=== PATIENT | female | born 1950 | race Caucasian/White ===

== ENCOUNTER 2022-12-17 20:50 | Emergency (ER) | payer MEDICAID ==
[~2022-12-17] VITALS: Ht 157.5 cm; Wt 73.0 kg
[2022-12-17 21:18] VITALS: BP 133/68
[2022-12-17 21:43] LABS: BASOPHILS % 0.2 % (0.0-2.0); EOSINOPHILS % 4.4 % (0.0-5.0); HEMATOCRIT. 35.3 % (36.0-48.0); LYMPHOCYTES % 30.9 % (20.0-50.0); MEAN CORPUSCULAR HEMOGLOBIN 29.8 pg (28.0-32.0); MEAN CORPUSCULAR VOLUME 88.1 fL (81.0-99.0); MEAN PLATELET VOLUME 7.4 fl (7.4-10.4); NEUTROPHILS % 54.5 % (40.0-76.0); PLATELET 334 x1000/uL (130-400); RED BLOOD CELL COUNT 4.01 mill/uL (4.2-5.4)
[2022-12-17 21:47] LABS: CHLORIDE 104 mEq/L (98-107)
[2022-12-17 22:05] LABS: CLARITY URINE CLEAR (CLEAR); COLOR URINE YELLOW (YELLOW); KETONES URINE NEGATIVE (NEGATIVE); LEUKOCYTE ESTERASE URINE 2+ (NEGATIVE); NITRITE URINE NEGATIVE (NEGATIVE); OCCULT BLOOD URINE TRACE (NEGATIVE); PROTEIN URINE NEGATIVE (NEGATIVE); SPECIFIC GRAVITY URINE 1.013 (1.005-1.030); UROBILINOGEN URINE 0.2 E.U./dL (0.2-1.0)
[2022-12-18] MEDS ORDERED: TOPUD MT (04:55)
== END 2022-12-18 05:10 | disposition home or self-care (01) ==
LOC: ER 20:50
DX: R10.31 Right lower quadrant pain (principal); Z88.0 Allergy status to penicillin
CPT/HCPCS: 36415; 74176; 80053; 81003; 85025; 93005; 99285